=== PATIENT | female | born 1980 | race African-American/Black ===

== ENCOUNTER 2020-12-11 13:55 | Emergency (ER) | payer SELFPAY ==
[2020-12-11 15:06] LABS: #Monocytes 0.3 10x3/uL (0.0-1.1); #Neutrophils 8.8 10x3/uL (1.5-8.4); %Basophils 0.2 % (0.0-2.0); %Eosinophils 0.1 % (0.0-6.0); %Lymphocytes 10.8 % (18.0-47.0); %Neutrophils 85.7 % (40.0-75.0); Hemoglobin 10.1 g/dL (12.0-15.5); Mean Corpuscular HGB CONC 31.9 g/dL (32.0-36.0); Mean Corpuscular Hemoglobin 26.6 pg (27.0-33.0); Mean Corpuscular Volume 83.4 fl (81.6-98.3); Mean Platelet Volume 11.4 fl (7.4-10.4); Platelet Count 150 10x3/uL (150-450); RBC Distribution Width 18.6 % (11.5-14.5); White Blood Cell (WBC) Count 10.3 10x3/uL (3.5-10.5)
[2020-12-11] MEDS ORDERED: Ketorolac Tromethamine 30 MG/ML VIAL ONE (15:20)
[2020-12-11] MEDS ORDERED: Fentanyl 100 MCG/2 ML VIAL ONE (15:21)
[2020-12-11 15:22] LABS: ALT (SGPT) 15 U/L (8-55); AST (SGOT) 22 U/L (5-34); Albumin 3.3 g/dL (3.5-5.0); Alkaline Phosphatase 83 U/L (40-110); Anion Gap 12 mmol/L (10-20); BUN (Urea Nitrogen) 8 mg/dL (7.0-18.7); Bilirubin, Total 0.3 mg/dL (0.2-1.2); Calc. Creatinine Clearance 0 mL/min (70-130); Calcium 8.5 mg/dL (7.8-10.44); Carbon Dioxide 22 mmol/L (22-29); Chloride 111 mmol/L (98-107); Globulin 2.8 g/dL (2.4-3.5); Glucose 99 mg/dL (70-105); Lipase 8 U/L (8-78); Potassium 3.8 mmol/L (3.5-5.1); Protein, Total 6.1 g/dL (6.0-8.3); Sodium 141 mmol/L (136-145)
[2020-12-11] MEDS ORDERED: Haloperidol Lactate 5 MG/ML VIAL ONE (15:41)
[2020-12-11] MEDS ORDERED: diphenhydrAMINE 50 MG/ML VIAL ONE (15:42)
== END 2020-12-11 18:30 | disposition home or self-care (01) ==
LOC: CSHERS 13:55
DX: R10.84 Generalized abdominal pain (principal); G43.909 Migraine, unspecified, not intractable, without status migrainosus
CPT/HCPCS: 36415; 74177; 83690; 93005; 96374; 96375; J1200; J1630; J1885; J3010

== ENCOUNTER 2022-03-01 12:08 | Emergency (ER) | payer SELFPAY ==
[2022-03-01] MEDS ORDERED: Diazepam 5 MG TAB ONE (13:19)
[2022-03-01] MEDS ORDERED: Dexamethasone 10 MG/ML VIAL ONE (13:19)
[2022-03-01] MEDS ORDERED: Ketorolac Tromethamine 30 MG/ML VIAL ONE (13:19)
== END 2022-03-01 13:54 | disposition home or self-care (01) ==
LOC: CSHERS 12:08
DX: M25.512 Pain in left shoulder (principal); M62.838 Other muscle spasm; M54.12 Radiculopathy, cervical region; G43.909 Migraine, unspecified, not intractable, without status migrainosus
CPT/HCPCS: 96372; J1100; J1885

== ENCOUNTER 2022-05-21 14:24 | Emergency (ER) | payer SELFPAY ==
[2022-05-21] MEDS ORDERED: Ketorolac Tromethamine 30 MG/ML VIAL ONE (15:50)
== END 2022-05-21 15:55 | disposition home or self-care (01) ==
LOC: CSHERS 14:24
DX: K04.7 Periapical abscess without sinus (principal); F17.210 Nicotine dependence, cigarettes, uncomplicated
CPT/HCPCS: 96372; 99283; J1885

== ENCOUNTER 2024-03-02 14:31 | Emergency (ER) | payer OTHER, SELFPAY ==
[2024-03-02] MEDS ORDERED: oxyCODONE 5 MG TAB ONE (15:55)
[2024-03-02] MEDS ORDERED: Acetaminophen 325 MG TAB ONE (15:55)
== END 2024-03-02 18:28 | disposition home or self-care (01) ==
LOC: CSHERS 14:31
DX: M54.50 Low back pain, unspecified (principal); M54.6 Pain in thoracic spine; F17.210 Nicotine dependence, cigarettes, uncomplicated; W01.0XXA Fall on same level from slipping, tripping and stumbling without subsequent striking against object, initial encounter
CPT/HCPCS: 72125; 72128; 72131

== ENCOUNTER 2025-03-27 08:57 | Outpatient (CLI) | payer OTHER | END 2025-03-27 08:58 | disposition home or self-care (01) | LOC: CSHMRI 08:57 | PROVIDERS: ATTEND Orthopaedic Surgery | DX: M50.121 Cervical disc disorder at C4-C5 level with radiculopathy (principal); M48.02 Spinal stenosis, cervical region; R90.89 Other abnormal findings on diagnostic imaging of central nervous system | CPT/HCPCS: 72141 ==